=== PATIENT | male | born 1935 | race Caucasian/White ===

== ENCOUNTER 2022-06-03 18:26 | Inpatient (IN) ==
[2022-06-03 19:55] LABS: Basophils % 0.3 % (0.0-0.8); Eosinophils % 0.3 % (0.00-10.9); Hematocrit 28.3 VOL% (42.0-52.0); Hemoglobin 8.8 GM/DL (14.0-18.0); Immature Granulocytes % 0.4 %; Immature Granulocytes Absolute 0.04 #; Lymphocytes # 1.1 10*3/uL (1.4-4.0); Lymphocytes % 10.5 % (21.2-54.2); Mean Corpuscular HGB Conc 31.1 GM/DL (32-36); Mean Corpuscular Volume 89.8 FL (87-102); Mean Platelet Volume 12.8 FL (9.6-12.0); Monocytes # 1.2 10*3/uL (0.11-0.8); Monocytes % 10.9 % (1.7-12.7); Neutrophils % 77.6 % (38.7-73.9); Platelet Count 186 T/CUMM (130-400); Red Blood Count 3.15 MC/CUMM (3.8-5.5); Red Cell Distribution Width 14.8 % (9.3-17.3); White Blood Count 10.8 T/CUMM (4-12)
[2022-06-03 19:57] LABS: Calcium 8.5 MG/DL (8.5-10.1); Osmolality,Calculated 285.1 MOS/KG (273-304); Potassium 3.7 MMOL/L (3.5-5.1)
[2022-06-03 20:31] LABS: PT Patient Result 21.1 SECS (10.1-12.1); Partial Thromboplastin Time 42.5 SECS (23.7-32.9)
[2022-06-03] MEDS ORDERED: AZITHROMYCIN INJ 500 MG in SODIUM CHLORIDE 0.9% 250 ML IV STA (22:26)
[2022-06-03] MEDS ORDERED: cefTRIAXone 1,000 MG in SODIUM CHLORIDE 0.9% 100 ML IV STA (22:26)
[2022-06-03] MEDS ORDERED: ACETAMINOPHEN 325 MG TABLET PO PRN (22:28)
[2022-06-03] MEDS ORDERED: ONDANSETRON 4 MG/2 ML VIAL IV PRN (22:28)
[2022-06-03] MEDS ORDERED: SODIUM CHLORIDE 0.9% 1,000 ML IV PRN (22:32)
[2022-06-03 22:38] LABS: Bilirubin,Urine Negative (Negative); Blood, Urine Moderate mg/dL (Negative); Glucose,Urine (UA) Negative (Negative); Ketones,Urine 15 mg/dL (Negative); Mucus,Urine Occasional /LPF (Occasional); Nitrite,Urine Negative (Negative); Protein,Urine Negative (Negative); RBC,Urine 40-45 /HPF (0-4); Urine Appearance Clear (Clear); Urine Color Yellow (Yellow); Urine Urobilinogen 0.2 eU/dL (<2.0); Urine pH 5.5 (4.5-8.0)
[2022-06-03] MEDS ORDERED: MAGNESIUM SULF RIDER 2 GM/50 ML PREMIX IV ONE (22:38)
[2022-06-04 06:06] LABS: INR 1.8
[2022-06-04 06:29] LABS: Albumin 2.3 G/DL (3.4-5.0); Bilirubin,Total 1.3 MG/DL (0.20-1.00); Calcium 8.4 MG/DL (8.5-10.1); Osmolality,Calculated 283.1 MOS/KG (273-304); Potassium 3.6 MMOL/L (3.5-5.1); Total Protein 5.7 G/DL (6.4-8.2)
[2022-06-04] MEDS: amLODIPine 5 MG TABLET PO SCH (08:59)
[2022-06-04] MEDS: PANTOPRAZOLE 40 MG TABLET PO SCH (08:59)
[2022-06-04] MEDS: MEMANTINE 5 MG TABLET PO SCH (08:59)
[2022-06-04] MEDS: TAMSULOSIN 0.4 MG CAPSULE PO SCH ×2 (08:59→21:23)
[2022-06-04] MEDS: DORZOLAMIDE/TIMOLOL OPH SOLN 10 ML BOTTLE RIGHT EYE SCH ×2 (09:02→21:23)
[2022-06-04] MEDS ORDERED: cefTRIAXone 1,000 MG in SODIUM CHLORIDE 0.9% 100 ML IV SCH (21:00)
[2022-06-04] MEDS ORDERED: allopurinoL 300 MG TABLET PO SCH (21:00)
[2022-06-04] MEDS ORDERED: AZITHROMYCIN INJ 500 MG in SODIUM CHLORIDE 0.9% 250 ML IV SCH (22:00)
[2022-06-05 05:54] LABS: Basophils % 0.1 % (0.0-0.8); Eosinophils # 0.1 10*3/uL (0.0-0.87); Hematocrit 30.7 VOL% (42.0-52.0); Hemoglobin 9.6 GM/DL (14.0-18.0); Immature Granulocytes % 0.3 %; Immature Granulocytes Absolute 0.03 #; Lymphocytes % 11.4 % (21.2-54.2); Mean Corpuscular HGB Conc 31.3 GM/DL (32-36); Mean Corpuscular Volume 90.8 FL (87-102); Mean Platelet Volume 12.5 FL (9.6-12.0); Neutrophils % 76.2 % (38.7-73.9); Platelet Count 197 T/CUMM (130-400); Red Blood Count 3.38 MC/CUMM (3.8-5.5); Red Cell Distribution Width 14.8 % (9.3-17.3); White Blood Count 8.9 T/CUMM (4-12)
[2022-06-05 06:04] LABS: INR 1.8; PT Patient Result 19.5 SECS (10.1-12.1)
[2022-06-05 06:10] LABS: Calcium 8.3 MG/DL (8.5-10.1); Potassium 3.4 MMOL/L (3.5-5.1)
[2022-06-05] MEDS: LACTATED RINGERS 1,000 ML IV SCH ×2 (07:39→11:12)
[2022-06-05] MEDS: DORZOLAMIDE/TIMOLOL OPH SOLN 10 ML BOTTLE RIGHT EYE SCH (08:45)
[2022-06-05] MEDS: PANTOPRAZOLE 40 MG TABLET PO SCH (08:46)
[2022-06-05] MEDS: amLODIPine 5 MG TABLET PO SCH (08:46)
[2022-06-05] MEDS: MEMANTINE 5 MG TABLET PO SCH (08:46)
[2022-06-05] MEDS: TAMSULOSIN 0.4 MG CAPSULE PO SCH (08:46)
[2022-06-05] MEDS ORDERED: BISACODYL 10 MG SUPP RECTAL PRN (08:47)
[2022-06-05 11:14] LABS: Urine Appearance Clear (Clear); Urine Color Yellow (Yellow); Urine pH 5.5 (4.5-8.0)
[2022-06-05 11:15] LABS: Amorphous Crystals,Urine Few /HPF (Few); Bilirubin,Urine Small mg/dL (Negative); Blood, Urine Moderate mg/dL (Negative); Glucose,Urine (UA) Negative (Negative); Ketones,Urine 40 mg/dL (Negative); Nitrite,Urine Negative (Negative); Protein,Urine 30 mg/dL (Negative); RBC,Urine 8 /HPF (0-4); Urine Specific Gravity > 1.030 (1.001-1.035); Urine Urobilinogen 0.2 eU/dL (<2.0)
[2022-06-05] MEDS ORDERED: propofoL 200 MG/20 ML VIAL IV ONE (11:37)
[2022-06-05] MEDS ORDERED: ETOMIDATE 20 MG/10 ML VIAL IV ONE ×2 (11:37)
[2022-06-05] MEDS ORDERED: LIDOCAINE 2% 5 ML VIAL ONE (11:38)
[2022-06-05] MEDS ORDERED: PHENYLEPHRINE 1 MG/10 ML SYRINGE IV ONE (11:44)
[2022-06-05 16:51] VITALS: BP 125/57
== END 2022-06-05 19:21 | disposition hospice, home (50) | DRG 194 ==
LOC: EDBD → EDUNIT# → N.ED 18:26 → N.5E 22:28
PROVIDERS: ADMIT Internal Medicine; ATTEND Internal Medicine